=== PATIENT | female | born 1970 | race Caucasian/White ===

== ENCOUNTER → 2018-06-27 | Outpatient (CLI) | payer BC ==
[2005-11-25 08:00] VITALS: PULSE 81; TEMP 97.8
== END ==
LOC: COL.RAD 13:48
DX: Z13.6 Encounter for screening for cardiovascular disorders (principal); Z82.49 Family history of ischemic heart disease and other diseases of the circulatory system

== ENCOUNTER → 2019-02-21 | Outpatient (CLI) | payer BC ==
[2005-11-25 08:00] VITALS: PULSE 81; TEMP 97.8
== END ==
LOC: MC.RAD 07:00
DX: N63.20 Unspecified lump in the left breast, unspecified quadrant (principal)
CPT/HCPCS: G0279

== ENCOUNTER → 2019-08-31 | Outpatient (CLI) | payer BC ==
[2005-11-25 08:00] VITALS: PULSE 81; TEMP 97.8
== END ==
LOC: MC.RAD 07:28
DX: N63.20 Unspecified lump in the left breast, unspecified quadrant (principal)
CPT/HCPCS: G0279